=== PATIENT | female | born 1930 | race Caucasian/White ===

== ENCOUNTER 2018-12-19 06:47 | Inpatient (IN) | payer MEDICARE, OTHER ==
[~2018-12-19] VITALS: Ht 170.2 cm; Wt 65.4 kg
[2018-12-19] MEDS ORDERED: ondansetron/PF 4mg/2ml inj IV ONE (07:05)
[2018-12-19 07:38] LABS: BASOPHILS % (AUTO) 0.3 % (0-1); EOSINOPHILS % (AUTO) 0.1 % (0-6); HEMOGLOBIN 8.8 g/dl (12.0-16.0); LYMPHOCYTES # (AUTO) 0.3 X10'3 (1.1-4.8); LYMPHOCYTES % (AUTO) 6.5 % (21-51); MEAN CORPUSCULAR HEMOGLOBIN 27.8 PG (27.0-31.0); MEAN CORPUSCULAR HGB CONC 32.5 g/dL (33.0-36.5); MEAN CORPUSCULAR VOLUME 85.6 FL (78-98); MEAN PLATELET VOLUME 7.3 FL (7.4-10.4); MONOCYTES # (AUTO) 0.5 X10'3 (0-0.9); MONOCYTES % (AUTO) 9.3 % (2-12); NEUTROPHILS # (AUTO) 4.1 X10'3 (1.8-7.7); NEUTROPHILS % (AUTO) 83.8 % (42-75); PLATELET COUNT 284 X10'3 (140-440); RED BLOOD COUNT 3.16 X10'6 (4.20-5.60); RED CELL DISTRIBUTION WIDTH 22.6 % (11.5-14.5); WHITE BLOOD COUNT 4.8 X10'3 (4.5-11.0)
[2018-12-19 07:44] LABS: ALANINE AMINOTRANSFERASE 148 U/L (12-78); ALBUMIN 2.2 G/DL (3.4-5.0); ALBUMIN/GLOBULIN RATIO 0.6 (1.1-1.5); ALKALINE PHOSPHATASE 238 IU/L (46-116); ANION GAP 8 (8-16); ASPARTATE AMINO TRANSFERASE 180 U/L (10-37); BILIRUBIN,TOTAL 1.2 MG/DL (0.1-1.0); BLOOD UREA NITROGEN 35 MG/DL (7-18); BUN/CREATININE RATIO 24.5 (6.6-38.0); CALCIUM 8.9 MG/DL (8.5-10.1); CHLORIDE 95 MMOL/L (99-107); CREATININE 1.43 MG/DL (0.40-0.90); GLUCOSE 215 MG/DL (70-104); SODIUM 131 MMOL/L (135-145); TOTAL PROTEIN 6.2 G/DL (6.4-8.2); eGFR 35 ML/MIN
--- NOTE | 2018-12-19 07:46 | NUR ---
gave pt phone to call family. transferred call into room. no answer will try again later. ultrasound at bedside.
[2018-12-19 07:52] LABS: LIPASE < 50 U/L (73-393)
--- NOTE | 2018-12-19 08:20 | NUR ---
infection control- marc arzola discussed c-diff findings and tx with dr. garcía
[2018-12-19] MEDS ORDERED: glucagon, human recombinant 1mg kit SUBCUT PRN (08:30)
[2018-12-19] MEDS ORDERED: furosemide 10 MG/1 ML 10ml inj IV ONE (08:30)
[2018-12-19] MEDS ORDERED: potassium Cl 20 mEq SR tablet PO PRN (08:30)
[2018-12-19] MEDS ORDERED: ipratropium/albuterol 3ml nebule NEB PRN (08:30)
[2018-12-19] MEDS ORDERED: mag hydrox/Alum hydrox/simeth 30ml oral suspension PO PRN (08:30)
[2018-12-19] MEDS ORDERED: ondansetron/PF 4mg/2ml inj IV PRN (08:30)
[2018-12-19] MEDS ORDERED: magnesium 2GM in 50ml NS 50 ML IV PRN (08:30)
[2018-12-19] MEDS ORDERED: dextrose 50%-water 50ml dispensing syringe IV PRN ×2 (08:30)
[2018-12-19] MEDS ORDERED: magnesium hydroxide 30ml (MOM) UD suspension PO PRN (08:30)
[2018-12-19] MEDS ORDERED: dextrose ORAL solution 15 GM/59 ML bottle PO PRN ×2 (08:30)
[2018-12-19] MEDS ORDERED: MESSAGE TO PHARMACY PO ONE (08:30)
[2018-12-19] MEDS ORDERED: potassium CL 10mEq/100ml bag 100 ML IV PRN (08:30)
[2018-12-19] MEDS ORDERED: magnesium 4gm in 100ml NS 100 ML IV PRN (08:30)
[2018-12-19 08:39] LABS: CLARITY,URINE CLOUDY (Clear); COLOR,URINE YELLOW (Yellow); GLUCOSE, URINE NEGATIVE (Neg); KETONES,URINE NEGATIVE (Neg); LEUKOCYTE ESTERASE ,URINE MODERATE (Neg); NITRITES, URINE NEGATIVE (Neg); OCCULT BLOOD,URINE TRACE-INTACT (Neg); PROTEIN,URINE NEGATIVE (Neg); UROBILINOGEN,URINE 0.2 E.U/dL (0.2-1.0)
[2018-12-19 08:44] LABS: UA COLLECTION TYPE FOLEY CATH
[2018-12-19 08:45] LABS: BACTERIA,URINE FEW /HPF (Neg); MUCUS STRANDS FEW /LPF (Neg); RBC,URINE 0-2 /HPF (0-2); SQUAMOUS EPITHELIAL CELL,UR FEW /LPF (FEW); TRANSITIONAL EPI CELLS,URINE FEW /HPF; WBC,URINE 50-100 /HPF (0-4)
[2018-12-19 08:46] LABS: URIC ACID CRYSTALS 1+ /HPF (NEGATIVE); WBC CLUMPS,URINE MANY /HPF (NEGATIVE); YEAST MANY /HPF (NEGATIVE)
[2018-12-19 08:58] LABS: TROPONIN I 0.11 NG/ML (0.0-0.05)
[2018-12-19 09:06] LABS: HEMOGLOBIN A1C 8.5 % (4.5-6.2)
--- NOTE | 2018-12-19 09:14 | NUR ---
CALLED PHARMACY STATED WILL SEND CELINAO PO DOWN.
--- NOTE | 2018-12-19 09:14 | NUR ---
PT SITTING UP IN BED NO DISTRESS NOTED. STATED PAIN 2/10 FEELING BETTER. WARM BLANKET GIVEN
[2018-12-19] MEDS: vancomycin 125mg/5ml ORAL solution 5ml UD bottle PO SCH ×3 (09:31→20:25)
[2018-12-19 10:59] LABS: TOTAL CELLS COUNTED 100
[2018-12-19 11:00] LABS: PLATELET ESTIMATE NORMAL
[2018-12-19 11:01] LABS: POLYCHROMASIA 1+
[2018-12-19 11:02] LABS: ANISOCYTOSIS 3+
[2018-12-19 11:03] LABS: ELLIPTOCYTES FEW; POIKILOCYTOSIS FEW; SPHEROCYTES 1+
--- NOTE | 2018-12-19 11:30 | NUR ---
Received report from ER. Have had the opportunity to review care and have my questions answered.
--- NOTE | 2018-12-19 13:20 | NUR ---
Sent to Dr Em PAGER ID: [phone] MESSAGE: RE: Hailee Bowling [phone]. Can we please get an order for NPO after midnight. -Simi [phone]
--- NOTE | 2018-12-19 13:24 | NUR ---
Sent to Dr Em PAGER ID: [phone] MESSAGE: RE: Hailee Bowling [phone]. Nuc med said no opiates, as well. -Simi [phone]
[2018-12-19] MEDS: insulin Lispro (HumaLOG) vial - multi-dose SQ SCH ×2 (14:59→19:05)
[2018-12-19 15:00] VITALS: BP 113/55
--- NOTE | 2018-12-19 15:00 | NUR ---
Lunch tray received late and Insulin not received from pharmacy until 3 pm. Since she will be retested in 2 hours, treatment held at this point.
--- NOTE | 2018-12-19 15:19 | NUR ---
prioritized problems, outcomes updated.
[2018-12-19] MEDS ORDERED: AMIO200T61 PO (15:34)
[2018-12-19] MEDS ORDERED: CARV-50 PO (15:52)
[2018-12-19] MEDS ORDERED: ONDA4TAB6 PO (15:52)
[2018-12-19] MEDS ORDERED: DOCU-148 (15:52)
[2018-12-19] MEDS ORDERED: BENZ-49 PO (15:52)
[2018-12-19] MEDS ORDERED: COU3T PO (15:52)
[2018-12-19] MEDS ORDERED: PANT-47 PO (15:52)
[2018-12-19] MEDS ORDERED: FURO-150 PO (15:52)
[2018-12-19] MEDS ORDERED: LOSA25TA96 PO (15:52)
[2018-12-19] MEDS ORDERED: LANTUS SQ (15:52)
[2018-12-19] MEDS ORDERED: ATOR40TA PO (15:52)
[2018-12-19] MEDS ORDERED: DICL100G15 TOP (15:52)
[2018-12-19] MEDS ORDERED: COU1T PO (15:52)
[2018-12-19] MEDS ORDERED: ASPI-1265 PO (15:52)
[2018-12-19 15:59] VITALS: BP 119/60
--- NOTE | 2018-12-19 17:45 | NUR ---
Reviewed DC instructions and paperwork. Answered patient's questions. DC in stable condition.
--- NOTE | 2018-12-19 18:08 | NUR ---
Problems reprioritized. Patient report given, questions answered & plan of care reviewed with RAFAELA Bruno.
[2018-12-19 19:00] VITALS: BP 103/54
[2018-12-19] MEDS: DICLOFENAC SODIUM TOP SCH (20:00)
[2018-12-19] MEDS ORDERED: ONDANSETRON HCL PO SCH (20:00)
[2018-12-19] MEDS: carvedilol 6.25mg tablet PO SCH (20:25)
[2018-12-19] MEDS ORDERED: warfarin 1mg tablet PO ONE (21:00)
[2018-12-19] MEDS: insulin glargine (Lantus) pen - multi-dose SQ SCH (21:41)
[2018-12-19 23:00] VITALS: BP 120/54
[2018-12-20] MEDS: DICLOFENAC SODIUM TOP SCH ×4 (02:00→20:00)
[2018-12-20] MEDS: vancomycin 125mg/5ml ORAL solution 5ml UD bottle PO SCH ×4 (02:15→20:03)
[2018-12-20 03:00] VITALS: BP 90/54
[2018-12-20 05:23] LABS: BASOPHILS % (AUTO) 0.6 % (0-1); EOSINOPHILS # (AUTO) 0.1 X10'3 (0-0.9); EOSINOPHILS % (AUTO) 2.7 % (0-6); HEMATOCRIT 26.7 % (35.0-45.0); HEMOGLOBIN 8.6 g/dl (12.0-16.0); LYMPHOCYTES # (AUTO) 0.2 X10'3 (1.1-4.8); LYMPHOCYTES % (AUTO) 5.8 % (21-51); MEAN CORPUSCULAR HEMOGLOBIN 27.5 PG (27.0-31.0); MEAN CORPUSCULAR HGB CONC 32.3 g/dL (33.0-36.5); MEAN CORPUSCULAR VOLUME 85.2 FL (78-98); MEAN PLATELET VOLUME 7.3 FL (7.4-10.4); MONOCYTES # (AUTO) 0.4 X10'3 (0-0.9); MONOCYTES % (AUTO) 9.8 % (2-12); NEUTROPHILS # (AUTO) 3.2 X10'3 (1.8-7.7); NEUTROPHILS % (AUTO) 81.1 % (42-75); PLATELET COUNT 290 X10'3 (140-440); RED BLOOD COUNT 3.14 X10'6 (4.20-5.60); WHITE BLOOD COUNT 3.9 X10'3 (4.5-11.0)
[2018-12-20 05:25] LABS: ALANINE AMINOTRANSFERASE 154 U/L (12-78); ALBUMIN/GLOBULIN RATIO 0.5 (1.1-1.5); ALKALINE PHOSPHATASE 195 IU/L (46-116); ANION GAP 3 (8-16); ASPARTATE AMINO TRANSFERASE 172 U/L (10-37); BILIRUBIN,TOTAL 0.9 MG/DL (0.1-1.0); BLOOD UREA NITROGEN 30 MG/DL (7-18); BUN/CREATININE RATIO 22.2 (6.6-38.0); CALCIUM 8.7 MG/DL (8.5-10.1); CHLORIDE 98 MMOL/L (99-107); CHOLESTEROL 88 MG/DL (0-200); CREATININE 1.35 MG/DL (0.40-0.90); GLUCOSE 84 MG/DL (70-104); HDL CHOLESTEROL 29 MG/DL (35-60); LDL CHOLESTEROL 50 MG/DL (50-100); MAGNESIUM 1.9 MG/DL (1.5-2.4); POTASSIUM 3.8 MMOL/L (3.5-5.1); SODIUM 134 MMOL/L (135-145); TOTAL CARBON DIOXIDE 33.1 MMOL/L (24-32); TOTAL PROTEIN 5.8 G/DL (6.4-8.2); TRIGLYCERIDES 56 MG/DL (20-135); eGFR 37 ML/MIN
[2018-12-20 06:00] VITALS: BP 105/57
--- NOTE | 2018-12-20 06:00 | NUR ---
Patient in room PCU 3019. I have received report from RAFAELA Bruno and had the opportunity to ask questions and assume patient care.
[2018-12-20 06:47] LABS: ANISOCYTOSIS 3+; ELLIPTOCYTES FEW; PLATELET ESTIMATE NORMAL; POLYCHROMASIA 1+
[2018-12-20 06:48] LABS: POIKILOCYTOSIS FEW; SPHEROCYTES FEW
[2018-12-20] MEDS ORDERED: enoxaparin 30mg/0.3ml syringe SQ SCH (08:00)
[2018-12-20] MEDS ORDERED: furosemide 40mg/4ml inj IV SCH (08:00)
[2018-12-20] MEDS ORDERED: sincalide inj 1.3 MCG in normal saline 50ml IV soln 50 ML IV ONE (08:00)
[2018-12-20] MEDS: K and/or MAG REPLACEMENT MC SCH (08:00)
[2018-12-20] MEDS: carvedilol 6.25mg tablet PO SCH ×2 (08:13→20:00)
[2018-12-20] MEDS: amiodarone 200mg tablet PO SCH (08:14)
[2018-12-20] MEDS: losartan 25mg tablet PO SCH (08:14)
[2018-12-20] MEDS: atorvastatin 20mg tablet PO SCH (08:14)
[2018-12-20] MEDS: pantoprazole 40mg Tablet.DR PO SCH (08:14)
[2018-12-20] MEDS: aspirin 81mg tab.chew PO SCH (08:16)
--- NOTE | 2018-12-20 09:30 | NUR ---
Called [facility] for cardiology records per Dr. Em's request. They are to fax over.
--- NOTE | 2018-12-20 12:00 | NUR ---
PRESSURE ULCER EDUCATION: DEFINITION: A pressure ulcer is an area of skin that breaks down when you stay in one position too long. The constant pressure against the skin reduces the blood flow to that area and the affected tissue dies. CAUSES: "Being bedridden or in a wheelchair "Fragile skin "Having a chronic condition, such as diabetes or vascular disease "Inability to move certain parts of your body without assistance "Older age "Incontinence of urine or stool SYMPTOMS: "A reddened area that DOES NOT turn white when pressed on - this can be the beginning of a pressure ulcer "A blister, deep sore or a crater - these can be advanced pressure ulcers FIRST AID: "Relieve the pressure on this area "Keep the area clean and dry "Call your primary doctor if you see any of the above symptoms "DO NOT massage the area "DO NOT use a donut shaped or ring shaped pillow- these actually interfere with the blood flow and cause complications PREVENTION: "Check for pressure ulcers everyday "Change position at least every two hours to relieve pressure "Use items that help relieve pressure- pillows, sheepskin, foam padding, and powders. "Keep skin clean and dry "Eat healthy well balanced meals "Exercise daily IF YOU SEE ANY OF THESE SYMPTOMS WHILE IN THE HOSPITAL - TELL YOUR NURSE IMMEDIATELY. IF YOU SEE ANY OF THESE SYMPTOMS WHILE AT HOME OR HAVE ANY QUESTIONS OR CONCERNS ABOUT PRESSURE ULCERS - CALL YOUR PRIMARY DOCTOR IMMEDIATELY. Addendum: 12/20/18 at 1201 by Octavio Spring RN Amended: Links added.
[2018-12-20] MEDS ORDERED: SINCALIDE IV ONE (12:40)
[2018-12-20] MEDS ORDERED: sincalide inj 1.3 MCG in normal saline 100ml IV soln 100 ML IV ONE (12:40)
[2018-12-20] MEDS ORDERED: NORMAL SALINE IV ONE (12:40)
--- NOTE | 2018-12-20 13:45 | NUR ---
Message to Dr. Em - MESSAGE: Ara Bowling, U rom # [id number]. Records from [facility] here. Need an order to either DC or continue stock cath. Was placed at [facility]. [place] EXT [phone]
--- NOTE | 2018-12-20 14:30 | NUR ---
Patient returns from [facility]. PT in to ambulate and patient became very hypotensive. Rechecked manually and it was 96/59. HR 64. notified. also reminded that we need an order for the stock cath or to DC it.
--- NOTE | 2018-12-20 14:32 | NUR ---
Notified MD Em of manual BP 96/59, HR 64. Per , decreasing lasix dosage and to give small amount of IVF.
[2018-12-20] MEDS ORDERED: normal saline 1000ml 1,000 ML IV SCH (14:35)
--- NOTE | 2018-12-20 14:45 | NUR ---
Malnutrition consult: Current documented weight changed from 68.6 kg to 140 kg; likely wt entered incorrectly and pt appears more likely to be the 68.6 kg. Pt seen at bedside reports UBW 62.7 kg, using wt of 68.6 kg pt is 109% reported UBW. Pt reports decreased appetite secondary to diet change to low fat at her SNF she was previously residing at. Pt currently NPO. Pt documented with mild weakness and no edema. Pt with no visible fat/muscle wasting. Pt currently lacks a minimum of two criteria for malnutrition. Wound/DM consult: Per [facility] notes pt with stable BLE venous ulcer with black eschar and small unstageable PU to coccyx/sacrum. Pt with hx T2DM with A1c 8.5. Pt provided with written and verbal protein and DM ed with referral to outpatient DM class and RD contact information. Pt with no questions at this time. Pt admit with abdominal pain and CHF. S/p CT with findings of biliary colic with gallbladder sludge versus stone, pending HIDA per H&P. Pt also being treated for C. diff. Pt reports food allergy to lobster and denies any difficulty chewing/swallowing. Pt reports her abdominal pain is improved however she continues with diarrhea. Will continue to follow. Recommendations: 1) Resume CHO controlled heart healthy diet as medically indicated 2) Monitor need for ONS with diet advancement 3) Wt per rx Addendum: 12/20/18 at [address] Amended: Links added.
[2018-12-20 15:00] VITALS: BP 112/45
--- NOTE | 2018-12-20 15:15 | NUR ---
BG checked upon return to unit. it was 106. Did not finish lunch until 3:15 - will not give insulin per protocol due to closeness of dinner BG check.
--- NOTE | 2018-12-20 16:11 | NUR ---
Problem list re-prioritized. Outcomes reviewed and updated.
[2018-12-20 18:00] VITALS: BP 90/51
--- NOTE | 2018-12-20 18:15 | NUR ---
Patient in room PCU 7663P. I have received report from RAFAELA Mann and had the opportunity to ask questions and assume patient care. Will continue to monitor
--- NOTE | 2018-12-20 18:21 | NUR ---
Problems reprioritized. Patient report given, questions answered & plan of care reviewed with RAFAELA Villa.
[2018-12-20] MEDS: insulin Lispro (HumaLOG) vial - multi-dose SQ SCH (19:13)
[2018-12-20] MEDS: lactobacillus rhamnosus 10,000 MMU CELLS/CAPSULE PO SCH (20:03)
[2018-12-20] MEDS ORDERED: warfarin 3mg tablet PO ONE (21:00)
[2018-12-20] MEDS: insulin glargine (Lantus) pen - multi-dose SQ SCH (21:00)
[2018-12-20 22:00] VITALS: BP 106/53
[2018-12-21] MEDS: vancomycin 125mg/5ml ORAL solution 5ml UD bottle PO SCH ×4 (01:52→21:01)
[2018-12-21 02:00] VITALS: BP 107/56
[2018-12-21] MEDS: DICLOFENAC SODIUM TOP SCH ×4 (02:00→20:00)
[2018-12-21 05:17] LABS: BASOPHILS % (AUTO) 0.1 % (0-1); EOSINOPHILS # (AUTO) 0.1 X10'3 (0-0.9); EOSINOPHILS % (AUTO) 3.1 % (0-6); HEMATOCRIT 27.3 % (35.0-45.0); HEMOGLOBIN 8.8 g/dl (12.0-16.0); LYMPHOCYTES # (AUTO) 0.3 X10'3 (1.1-4.8); LYMPHOCYTES % (AUTO) 6.1 % (21-51); MEAN CORPUSCULAR HEMOGLOBIN 27.4 PG (27.0-31.0); MEAN CORPUSCULAR HGB CONC 32.3 g/dL (33.0-36.5); MEAN CORPUSCULAR VOLUME 84.9 FL (78-98); MEAN PLATELET VOLUME 7.1 FL (7.4-10.4); MONOCYTES # (AUTO) 0.4 X10'3 (0-0.9); MONOCYTES % (AUTO) 8.9 % (2-12); NEUTROPHILS % (AUTO) 81.8 % (42-75); PLATELET COUNT 333 X10'3 (140-440); RED BLOOD COUNT 3.21 X10'6 (4.20-5.60); RED CELL DISTRIBUTION WIDTH 22.4 % (11.5-14.5); WHITE BLOOD COUNT 4.9 X10'3 (4.5-11.0)
--- NOTE | 2018-12-21 05:31 | NUR ---
[place] documentation: I have reviewed all interventions, assessments performed and documented by Akhil RUSSO. [place] Medication Administration: For this medication-pass time frame, all medication were reviewed, dispensed, administered and documented per hospital policy by Akhil RUSSO.
[2018-12-21 05:37] LABS: ALANINE AMINOTRANSFERASE 121 U/L (12-78); ALBUMIN/GLOBULIN RATIO 0.5 (1.1-1.5); ALKALINE PHOSPHATASE 185 IU/L (46-116); ANION GAP 8 (8-16); ASPARTATE AMINO TRANSFERASE 103 U/L (10-37); BILIRUBIN,TOTAL 0.8 MG/DL (0.1-1.0); BLOOD UREA NITROGEN 24 MG/DL (7-18); BUN/CREATININE RATIO 21.6 (6.6-38.0); CALCIUM 8.3 MG/DL (8.5-10.1); CHLORIDE 98 MMOL/L (99-107); CREATININE 1.11 MG/DL (0.40-0.90); GLUCOSE 69 MG/DL (70-104); MAGNESIUM 1.7 MG/DL (1.5-2.4); SODIUM 135 MMOL/L (135-145); TOTAL CARBON DIOXIDE 28.8 MMOL/L (24-32); TOTAL PROTEIN 5.8 G/DL (6.4-8.2); eGFR 47 ML/MIN
--- NOTE | 2018-12-21 06:15 | NUR ---
Problems reprioritized. Patient report given, questions answered & plan of care reviewed with Carla RUSSO & Iwona RUSSO.
[2018-12-21] MEDS: potassium CL 10mEq/100ml bag 100 ML IV PRN ×2 (06:22→08:09)
--- NOTE | 2018-12-21 06:27 | NUR ---
Sent to DR. Bower PAGER ID: [phone] MESSAGE: FYI: TawnyaMelina, Room # 301 Potassium level is 3.0. Administering IV potassium now. Thank you, Akhil
--- NOTE | 2018-12-21 06:33 | NUR ---
Patient in room PCU 3019. I have received report from Daisy RUSSO and Akhil RN and had the opportunity to ask questions and assume patient care. Pt resting in no apparent distress, will continue to monitor.
[2018-12-21 07:29] LABS: ANISOCYTOSIS 3+; PLATELET ESTIMATE NORMAL; POLYCHROMASIA FEW; SCHISTOCYTES FEW
[2018-12-21 07:30] LABS: ELLIPTOCYTES FEW; SPHEROCYTES FEW
[2018-12-21] MEDS: carvedilol 6.25mg tablet PO SCH ×2 (08:00→21:03)
[2018-12-21] MEDS: losartan 25mg tablet PO SCH (08:00)
[2018-12-21] MEDS: aspirin 81mg tab.chew PO SCH (08:09)
[2018-12-21] MEDS: lactobacillus rhamnosus 10,000 MMU CELLS/CAPSULE PO SCH ×2 (08:09→21:02)
[2018-12-21] MEDS: pantoprazole 40mg Tablet.DR PO SCH (08:10)
[2018-12-21] MEDS: amiodarone 200mg tablet PO SCH (08:10)
[2018-12-21] MEDS: atorvastatin 20mg tablet PO SCH (08:11)
[2018-12-21] MEDS: furosemide 40mg/4ml inj IV SCH (08:11)
[2018-12-21] MEDS: potassium Cl 20 mEq SR tablet PO PRN ×3 (08:29→21:02)
[2018-12-21] MEDS: K and/or MAG REPLACEMENT MC SCH (08:53)
[2018-12-21 11:00] VITALS: BP 100/53
--- NOTE | 2018-12-21 11:46 | NUR ---
Spoke to Dr. Em about my concern for pt's BP of 100/53 and needing to still give Coreg and Losartan. Per Dr. Em, hold Coreg and Losarten. Will continue to monitor.
[2018-12-21] MEDS ORDERED: POTA20TA19 PO (13:30)
[2018-12-21] MEDS ORDERED: FURO-150 PO (13:30)
[2018-12-21] MEDS ORDERED: benzonatate 100mg capsule PO ONE (13:50)
[2018-12-21 15:00] VITALS: BP 95/57
[2018-12-21 18:00] VITALS: BP 101/54
--- NOTE | 2018-12-21 18:15 | NUR ---
Patient in room PCU 3019. I have received report from RAFAELA Aguirre and had the opportunity to ask questions and assume patient care. Will continue to monitor
--- NOTE | 2018-12-21 18:16 | NUR ---
Problems reprioritized. Patient report given, questions answered & plan of care reviewed with Daisy RUSSO.
[2018-12-21] MEDS: insulin Lispro (HumaLOG) vial - multi-dose SQ SCH (18:41)
[2018-12-21] MEDS ORDERED: warfarin 3mg tablet PO ONE (21:00)
[2018-12-21] MEDS: insulin glargine (Lantus) pen - multi-dose SQ SCH (21:05)
[2018-12-21] MEDS: benzonatate 100mg capsule PO PRN (21:55)
[2018-12-21 22:00] VITALS: BP 105/55
[2018-12-22] MEDS: vancomycin 125mg/5ml ORAL solution 5ml UD bottle PO SCH ×4 (01:42→20:17)
[2018-12-22 02:00] VITALS: BP 110/69
[2018-12-22] MEDS: DICLOFENAC SODIUM TOP SCH ×4 (02:00→20:17)
[2018-12-22 06:00] VITALS: BP 115/70
--- NOTE | 2018-12-22 06:10 | NUR ---
Patient in room PCU 3019. I have received report from RAFAELA Villa and had the opportunity to ask questions and assume patient care.
[2018-12-22 06:21] LABS: BASOPHILS % (AUTO) 0.3 % (0-1); EOSINOPHILS # (AUTO) 0.1 X10'3 (0-0.9); EOSINOPHILS % (AUTO) 1.4 % (0-6); HEMATOCRIT 28.5 % (35.0-45.0); HEMOGLOBIN 9.3 g/dl (12.0-16.0); LYMPHOCYTES # (AUTO) 0.5 X10'3 (1.1-4.8); LYMPHOCYTES % (AUTO) 9.8 % (21-51); MEAN CORPUSCULAR HEMOGLOBIN 27.5 PG (27.0-31.0); MEAN CORPUSCULAR HGB CONC 32.5 g/dL (33.0-36.5); MEAN CORPUSCULAR VOLUME 84.6 FL (78-98); MEAN PLATELET VOLUME 7.2 FL (7.4-10.4); MONOCYTES # (AUTO) 0.8 X10'3 (0-0.9); MONOCYTES % (AUTO) 15.2 % (2-12); NEUTROPHILS # (AUTO) 3.7 X10'3 (1.8-7.7); NEUTROPHILS % (AUTO) 73.3 % (42-75); PLATELET COUNT 375 X10'3 (140-440); RED BLOOD COUNT 3.36 X10'6 (4.20-5.60); WHITE BLOOD COUNT 5.1 X10'3 (4.5-11.0)
--- NOTE | 2018-12-22 06:25 | NUR ---
Problems reprioritized. Patient report given, questions answered & plan of care reviewed with Simi RN.
--- NOTE | 2018-12-22 06:42 | NUR ---
Dr Bower informed and aware of the pt's INR (4.3) and PT (40.5).
[2018-12-22 06:44] LABS: ALANINE AMINOTRANSFERASE 100 U/L (12-78); ALBUMIN 2.1 G/DL (3.4-5.0); ALBUMIN/GLOBULIN RATIO 0.6 (1.1-1.5); ALKALINE PHOSPHATASE 250 IU/L (46-116); ANION GAP 6 (8-16); ASPARTATE AMINO TRANSFERASE 84 U/L (10-37); BILIRUBIN,TOTAL 0.9 MG/DL (0.1-1.0); BLOOD UREA NITROGEN 23 MG/DL (7-18); BUN/CREATININE RATIO 19.3 (6.6-38.0); CALCIUM 8.3 MG/DL (8.5-10.1); CHLORIDE 98 MMOL/L (99-107); CREATININE 1.19 MG/DL (0.40-0.90); GLUCOSE 139 MG/DL (70-104); MAGNESIUM 1.8 MG/DL (1.5-2.4); POTASSIUM 4.6 MMOL/L (3.5-5.1); SODIUM 133 MMOL/L (135-145); TOTAL CARBON DIOXIDE 28.7 MMOL/L (24-32); TOTAL PROTEIN 5.9 G/DL (6.4-8.2); eGFR 43 ML/MIN
--- NOTE | 2018-12-22 07:06 | NUR ---
Sent to Dr Em PAGER ID: [phone] MESSAGE: RE: Tasha Bowling [phone]. CRITICAL VALUE: INR 4.3 ; PT 40.5 -Simi [phone]
[2018-12-22] MEDS: furosemide 40mg/4ml inj IV SCH (07:52)
[2018-12-22] MEDS: pantoprazole 40mg Tablet.DR PO SCH (07:52)
[2018-12-22] MEDS: lactobacillus rhamnosus 10,000 MMU CELLS/CAPSULE PO SCH ×2 (07:53→20:17)
[2018-12-22] MEDS: carvedilol 6.25mg tablet PO SCH ×2 (07:53→20:17)
[2018-12-22] MEDS: amiodarone 200mg tablet PO SCH (07:53)
[2018-12-22] MEDS: aspirin 81mg tab.chew PO SCH (07:53)
[2018-12-22] MEDS: losartan 25mg tablet PO SCH (07:53)
[2018-12-22] MEDS: atorvastatin 20mg tablet PO SCH (07:53)
[2018-12-22] MEDS: K and/or MAG REPLACEMENT MC SCH (07:55)
[2018-12-22] MEDS: benzonatate 100mg capsule PO PRN (08:18)
[2018-12-22 08:30] LABS: HBSAG SCREEN Negative (Negative); HEP A AB, IGM Negative (Negative); HEP B CORE AB, IGM Negative (Negative); HEPATITIS C ANTIBODY <0.1 s/co ratio (0.0-0.9)
[2018-12-22] MEDS: insulin Lispro (HumaLOG) vial - multi-dose SQ SCH (09:16)
[2018-12-22 11:00] VITALS: BP 97/57
[2018-12-22 15:00] VITALS: BP 95/55
[2018-12-22 18:00] VITALS: BP 103/45
--- NOTE | 2018-12-22 18:45 | NUR ---
Problems reprioritized. Patient report given, questions answered & plan of care reviewed with RAFAELA Madera.
[2018-12-22] MEDS: insulin glargine (Lantus) pen - multi-dose SQ SCH (20:19)
[2018-12-22 22:00] VITALS: BP 95/51
[2018-12-23 02:00] VITALS: BP 99/53
[2018-12-23] MEDS: DICLOFENAC SODIUM TOP SCH ×4 (02:03→20:46)
[2018-12-23] MEDS: vancomycin 125mg/5ml ORAL solution 5ml UD bottle PO SCH ×4 (02:03→20:46)
[2018-12-23 05:59] LABS: BASOPHILS % (AUTO) 0.2 % (0-1); EOSINOPHILS # (AUTO) 0.1 X10'3 (0-0.9); EOSINOPHILS % (AUTO) 2.6 % (0-6); HEMATOCRIT 25.9 % (35.0-45.0); HEMOGLOBIN 8.6 g/dl (12.0-16.0); LYMPHOCYTES # (AUTO) 0.5 X10'3 (1.1-4.8); MEAN CORPUSCULAR HEMOGLOBIN 28.1 PG (27.0-31.0); MEAN CORPUSCULAR HGB CONC 33.3 g/dL (33.0-36.5); MEAN CORPUSCULAR VOLUME 84.5 FL (78-98); MONOCYTES # (AUTO) 0.6 X10'3 (0-0.9); MONOCYTES % (AUTO) 15.4 % (2-12); NEUTROPHILS # (AUTO) 2.8 X10'3 (1.8-7.7); NEUTROPHILS % (AUTO) 69.8 % (42-75); PLATELET COUNT 336 X10'3 (140-440); RED BLOOD COUNT 3.07 X10'6 (4.20-5.60); RED CELL DISTRIBUTION WIDTH 21.9 % (11.5-14.5)
[2018-12-23 06:16] LABS: ALANINE AMINOTRANSFERASE 81 U/L (12-78); ALBUMIN/GLOBULIN RATIO 0.6 (1.1-1.5); ANION GAP 5 (8-16); ASPARTATE AMINO TRANSFERASE 69 U/L (10-37); BILIRUBIN,TOTAL 0.9 MG/DL (0.1-1.0); BLOOD UREA NITROGEN 20 MG/DL (7-18); BUN/CREATININE RATIO 17.1 (6.6-38.0); CALCIUM 8.2 MG/DL (8.5-10.1); CHLORIDE 98 MMOL/L (99-107); CREATININE 1.17 MG/DL (0.40-0.90); GLUCOSE 112 MG/DL (70-104); MAGNESIUM 1.7 MG/DL (1.5-2.4); POTASSIUM 3.9 MMOL/L (3.5-5.1); SODIUM 132 MMOL/L (135-145); TOTAL PROTEIN 5.6 G/DL (6.4-8.2); eGFR 44 ML/MIN
--- NOTE | 2018-12-23 06:30 | NUR ---
PAGER ID: [phone] MESSAGE: Tawnya Chaney. Patient has critical INR of 5.6 [place] [phone]
--- NOTE | 2018-12-23 06:32 | NUR ---
Patient in room PCU 3012. I have received report from Cassy RUSSO and had the opportunity to ask questions and assume patient care.
[2018-12-23 06:58] LABS: ALKALINE PHOSPHATASE 231 IU/L (46-116)
[2018-12-23 07:13] VITALS: BP 112/61
[2018-12-23] MEDS: K and/or MAG REPLACEMENT MC SCH (08:00)
[2018-12-23] MEDS ORDERED: phytonadione 10 MG/1 ML amp PO ONE (08:05)
[2018-12-23] MEDS: amiodarone 200mg tablet PO SCH (08:35)
[2018-12-23] MEDS: pantoprazole 40mg Tablet.DR PO SCH (08:35)
[2018-12-23] MEDS: losartan 25mg tablet PO SCH (08:35)
[2018-12-23] MEDS: aspirin 81mg tab.chew PO SCH (08:35)
[2018-12-23] MEDS: atorvastatin 20mg tablet PO SCH (08:35)
[2018-12-23] MEDS: furosemide 40mg/4ml inj IV SCH (08:35)
[2018-12-23] MEDS: carvedilol 6.25mg tablet PO SCH ×2 (08:35→20:46)
[2018-12-23] MEDS: lactobacillus rhamnosus 10,000 MMU CELLS/CAPSULE PO SCH ×2 (08:35→20:46)
--- NOTE | 2018-12-23 09:29 | NUR ---
O2 Sat at rest on room air: 83 % If below 89%: Recovery O2 Sat at rest on 2 LPM: 96% via nasal cannula No further documentation is necessary.
[2018-12-23] MEDS ORDERED: furosemide 40mg tablet PO ONE (09:30)
[2018-12-23 11:00] VITALS: BP 110/58
--- NOTE | 2018-12-23 13:32 | NUR ---
PAGER ID: [phone] MESSAGE: Tawnya Chaney. Can we change the Xray to a single view so it can be done bedside? Edda [phone]
[2018-12-23 15:00] VITALS: BP 100/55
[2018-12-23 18:00] VITALS: BP 101/61
--- NOTE | 2018-12-23 18:40 | NUR ---
Problems reprioritized. Patient report given, questions answered & plan of care reviewed with Kiana RUSSO. Patient stable at transfer of care.
[2018-12-23] MEDS: insulin glargine (Lantus) pen - multi-dose SQ SCH (21:00)
[2018-12-23 23:00] VITALS: BP 100/55
[2018-12-24] MEDS: DICLOFENAC SODIUM TOP SCH ×2 (02:00→07:27)
[2018-12-24] MEDS: vancomycin 125mg/5ml ORAL solution 5ml UD bottle PO SCH ×2 (02:06→07:27)
[2018-12-24 03:00] VITALS: BP 119/62
[2018-12-24 06:16] LABS: BASOPHILS % (AUTO) 0.3 % (0-1); EOSINOPHILS # (AUTO) 0.1 X10'3 (0-0.9); EOSINOPHILS % (AUTO) 2.3 % (0-6); HEMATOCRIT 27.9 % (35.0-45.0); LYMPHOCYTES # (AUTO) 0.4 X10'3 (1.1-4.8); LYMPHOCYTES % (AUTO) 10.4 % (21-51); MEAN CORPUSCULAR HEMOGLOBIN 27.5 PG (27.0-31.0); MEAN CORPUSCULAR HGB CONC 32.5 g/dL (33.0-36.5); MEAN CORPUSCULAR VOLUME 84.8 FL (78-98); MEAN PLATELET VOLUME 6.8 FL (7.4-10.4); MONOCYTES # (AUTO) 0.5 X10'3 (0-0.9); MONOCYTES % (AUTO) 13.1 % (2-12); NEUTROPHILS # (AUTO) 3.1 X10'3 (1.8-7.7); NEUTROPHILS % (AUTO) 73.9 % (42-75); PLATELET COUNT 356 X10'3 (140-440); RED BLOOD COUNT 3.29 X10'6 (4.20-5.60); RED CELL DISTRIBUTION WIDTH 22.5 % (11.5-14.5); WHITE BLOOD COUNT 4.2 X10'3 (4.5-11.0)
[2018-12-24 06:34] LABS: ALANINE AMINOTRANSFERASE 65 U/L (12-78); ALBUMIN 1.9 G/DL (3.4-5.0); ALBUMIN/GLOBULIN RATIO 0.5 (1.1-1.5); ALKALINE PHOSPHATASE 213 IU/L (46-116); ANION GAP 6 (8-16); ASPARTATE AMINO TRANSFERASE 59 U/L (10-37); BILIRUBIN,TOTAL 0.9 MG/DL (0.1-1.0); BLOOD UREA NITROGEN 16 MG/DL (7-18); BUN/CREATININE RATIO 15.4 (6.6-38.0); CALCIUM 7.8 MG/DL (8.5-10.1); CHLORIDE 100 MMOL/L (99-107); CREATININE 1.04 MG/DL (0.40-0.90); GLUCOSE 95 MG/DL (70-104); MAGNESIUM 1.6 MG/DL (1.5-2.4); POTASSIUM 3.8 MMOL/L (3.5-5.1); SODIUM 136 MMOL/L (135-145); TOTAL PROTEIN 5.6 G/DL (6.4-8.2); eGFR 50 ML/MIN
--- NOTE | 2018-12-24 06:38 | NUR ---
Patient in room PCU 3019. I have received report from Kiana RUSSO and had the opportunity to ask questions and assume patient care.
[2018-12-24 06:46] VITALS: BP 118/44
[2018-12-24 07:20] LABS: ANISOCYTOSIS 3+; PLATELET ESTIMATE NORMAL
[2018-12-24] MEDS: carvedilol 6.25mg tablet PO SCH (07:26)
[2018-12-24] MEDS: atorvastatin 20mg tablet PO SCH (07:26)
[2018-12-24] MEDS: aspirin 81mg tab.chew PO SCH (07:26)
[2018-12-24] MEDS: pantoprazole 40mg Tablet.DR PO SCH (07:26)
[2018-12-24] MEDS: lactobacillus rhamnosus 10,000 MMU CELLS/CAPSULE PO SCH (07:26)
[2018-12-24] MEDS: losartan 25mg tablet PO SCH (07:26)
[2018-12-24] MEDS: amiodarone 200mg tablet PO SCH (07:26)
[2018-12-24] MEDS: K and/or MAG REPLACEMENT MC SCH (08:00)
[2018-12-24] MEDS ORDERED: FURO-150 PO (10:14)
[2018-12-24 11:00] VITALS: BP 81/54
--- NOTE | 2018-12-24 15:02 | NUR ---
[facility]18. Patient packet was given to shelton Flanagan who was transporting the patient to the facility. Patient did not have a PIV, patient telemetry was removed and all belongings were sent with the patient. Patient was given Oxygen and took it to the facility. Patient left via private vehicle.
== END 2018-12-24 13:17 | DRG 371 ==
LOC: ER 06:48 → PCU 3S 10:24 → CMPBEDREQ 19:51
PROVIDERS: ADMIT Family Medicine; ATTEND Family Medicine
PROC: 5A09357 Assistance with Respiratory Ventilation, Less than 24 Consecutive Hours, Continuous Positive Airway Pressure (ICD-10-PCS; principal; 2018-12-19)
PROC: 5A09357 Assistance with Respiratory Ventilation, Less than 24 Consecutive Hours, Continuous Positive Airway Pressure (ICD-10-PCS; 2018-12-20)
PROC: 5A09357 Assistance with Respiratory Ventilation, Less than 24 Consecutive Hours, Continuous Positive Airway Pressure (ICD-10-PCS; 2018-12-21)
PROC: 5A09357 Assistance with Respiratory Ventilation, Less than 24 Consecutive Hours, Continuous Positive Airway Pressure (ICD-10-PCS; 2018-12-23)
DX: A04.72 Enterocolitis due to Clostridium difficile, not specified as recurrent (principal); I50.43 Acute on chronic combined systolic (congestive) and diastolic (congestive) heart failure; E43 Unspecified severe protein-calorie malnutrition; I21.A1 Myocardial infarction type 2; N17.0 Acute kidney failure with tubular necrosis; J98.11 Atelectasis; E87.1 Hypo-osmolality and hyponatremia; I13.0 Hypertensive heart and chronic kidney disease with heart failure and stage 1 through stage 4 chronic kidney disease, or unspecified chronic kidney disease; E03.9 Hypothyroidism, unspecified; E11.22 Type 2 diabetes mellitus with diabetic chronic kidney disease; E11.65 Type 2 diabetes mellitus with hyperglycemia; E78.00 Pure hypercholesterolemia, unspecified; G47.33 Obstructive sleep apnea (adult) (pediatric); I08.0 Rheumatic disorders of both mitral and aortic valves; I48.2 Chronic atrial fibrillation; I50.84 End stage heart failure; K21.9 Gastro-esophageal reflux disease without esophagitis; I95.9 Hypotension, unspecified; N20.0 Calculus of kidney; R74.0 Nonspecific elevation of levels of transaminase and lactic acid dehydrogenase [LDH]; N18.9 Chronic kidney disease, unspecified; Z79.01 Long term (current) use of anticoagulants; Z79.4 Long term (current) use of insulin; Z88.8 Allergy status to other drugs, medicaments and biological substances; Z88.6 Allergy status to analgesic agent; Z91.018 Allergy to other foods; Z91.013 Allergy to seafood; Z79.82 Long term (current) use of aspirin; Z79.890 Hormone replacement therapy; Z79.899 Other long term (current) drug therapy; I25.2 Old myocardial infarction; Z85.828 Personal history of other malignant neoplasm of skin; Z95.0 Presence of cardiac pacemaker; Z98.41 Cataract extraction status, right eye; Z98.42 Cataract extraction status, left eye
CPT/HCPCS: 36415; 71045; 76705; 78227; 80053; 80061; 80074; 81001; 82948; 83036; 83605; 83690; 83735; 83880; 84132; 84145; 84484; 85025; 85610; 87040; 87077; 87088; 93306; 94660; 94760; 97110; 97162; 97530; A9537; G0378; J1815; J1940; J2405; J2805; J3430; J3480; J7030